=== PATIENT | female | born 2000 | race Caucasian/White ===

== ENCOUNTER 2021-04-29 14:45 | Emergency (ER) | payer OTHER ==
[2021-04-29 14:51] VITALS: BP 132/88; PULSE 78; TEMP 97.8; BMI 35.4
[2021-04-29 16:20] LABS: EPI CELLS >36 /uL (0-25.1); HYALINE CASTS 2 /uL (0-3.1); PH,URINE 8.5 (5.0-8.0); URINE APPEARANCE CLEAR; URINE BACTERIA 438 /uL (0-1359); URINE BILIRUBIN NEGATIVE (NEGATIVE); URINE COLOR DK YELLOW; URINE GLUCOSE (UA) NEGATIVE (NEGATIVE); URINE KETONE TRACE (NEGATIVE); URINE LEUK ESTERASE TRACE (NEGATIVE); URINE NITRITE NEGATIVE (NEGATIVE); URINE PROTEIN TRACE (NEGATIVE); URINE RBC 29 /uL (0-23.9); URINE WBC 30 /uL (0-25.8)
[2021-04-29 16:44] LABS: COCAINE, UR NEGATIVE (NEGATIVE); METHADONE, UR NEGATIVE (NEGATIVE); OPIATES, URI NEGATIVE (NEGATIVE); PHENCYCLIDINE,URINE NEGATIVE (NEGATIVE); URINE AMPHETAMINES NEGATIVE (NEGATIVE); URINE BARBITURATES NEGATIVE (NEGATIVE); URINE BENZODIAZEPINES NEGATIVE (NEGATIVE)
[2021-04-29 17:31] LABS: BASO % 0.3 % (0-2.0); HEMATOCRIT 37.1 % (32.4-45.2); HEMOGLOBIN 12.4 GM/dL (10.7-15.3); LYMPH % 26.8 % (8-40); MCH 26.4 pg (25.7-33.7); MCHC 33.5 g/dl (32.0-36.0); MEAN CELL VOLUME 78.7 fl (80-96); MEAN PLT VOLUME 7.8 fl (7.5-11.1); MONO % 8.8 % (3.8-10.2); NEUT % 63.1 % (42.8-82.8); PLATELET COUNT 355 10^3/uL (134-434); RBC 4.71 M/mm3 (3.60-5.2); RDW 14.5 % (11.6-15.6); WHITE BLOOD COUNT 13.6 K/mm3 (4.0-10.0)
[2021-04-29 17:39] LABS: INR 1.03 (0.83-1.09); PROTHROMBIN TIME (PATIENT) 11.9 SEC (9.7-13.0)
[2021-04-29 17:54] LABS: CALCIUM 9.7 mg/dL (8.5-10.1)
[2021-04-29 17:58] LABS: CREATININE 0.7 mg/dL (0.55-1.3)
[2021-04-29 18:00] LABS: BILIRUBIN,TOTAL 0.4 mg/dL (0.2-1); TOT PROT 8.6 g/dl (6.4-8.2)
[2021-04-29] MEDS ORDERED: MAG HYDROX/AL HYDROX/SIMETH 30 ML UNIT-DOSE CUP PO ONE (18:48)
[2021-04-29] MEDS ORDERED: LIDOCAINE VISCOUS 2% ORAL/TOP 15 ML UNIT-DOSE CUP MM ONE (18:48)
[2021-04-29] MEDS ORDERED: FAMOTIDINE 20 MG TABLET PO ONE (18:48)
[2021-04-29] MEDS ORDERED: DICYCLOMINE HCL 10 MG/5 ML PO ONE (18:50)
[2021-04-29] MEDS ORDERED: FAMOTIDINE 20 MG TABLET ONE ×2 (18:52→18:54)
[2021-04-29] MEDS ORDERED: LIDOCAINE VISCOUS 2% ORAL/TOP 15 ML UNIT-DOSE CUP ONE (18:53)
[2021-04-29] MEDS ORDERED: DICYCLOMINE HCL 10 MG CAPSULE ONE (18:53)
[2021-04-29] MEDS ORDERED: diphenhydrAMINE HCL 12.5 MG/5 ML UNIT-DOSE CUPS ONE (18:53)
[2021-04-29] MEDS ORDERED: MAG HYDROX/AL HYDROX/SIMETH 30 ML UNIT-DOSE CUP ONE (18:54)
== END 2021-04-29 19:32 | disposition home or self-care (01) ==
LOC: JERFT 14:45
DX: R10.12 Left upper quadrant pain (principal)
CPT/HCPCS: 36415; 71046-TC-FY; 80053; 80307; 81003; 84703; 85025; 85610; 87077; 87086; 93005; 93010; 99285-25